=== PATIENT | female | born 1960 | race Caucasian/White ===

== ENCOUNTER → 2017-02-14 | Outpatient (CLI) | payer BC ==
[~2017-02-14] MED LIST: SIMV10TA84 PO
[2017-02-14 08:57] LABS: Basophils # (auto) 0 uL; Basophils % (auto) 0.7 % (0.0-2.0); CONDITION Y; Eosinophils # (auto) 0.1 uL; Eosinophils % (auto) 0.8 % (0.0-7.0); Hematocrit 51.7 % (36.0-46.0); Hemoglobin 17.3 g/dL (12.2-16.2); Lymphocytes % (auto) 27.7 % (10.0-50.0); Mean Corpuscular Hemoglobin 32.8 pg (28.0-32.0); Mean Corpuscular Hgb Conc. 33.5 g/dL (32.0-36.0); Mean Corpuscular Volume 97.9 fL (80.0-100.0); Mean Platelet Volume 8.7 fL (7.4-10.4); Monocytes # (auto) 0.7 uL; Monocytes % (auto) 10.2 % (0.0-12.0); Neutrophils # (auto) 4.5 uL; Neutrophils % (auto) 60.6 % (37.0-80.0); Platelet Count (auto) 226 10^3/uL (140-450); Red Cell Distribution Width 14.9 % (11.6-16.0); White Blood Cell 7.4 10^3/uL (4.4-10.8)
[2017-02-14 09:12] LABS: Calcium 9.1 mg/dL (8.5-10.1); INR 1.2 (0.9-1.15); Partial Thromboplastin Time 27.1 sec (22.64-33.71); Potassium 4.3 mmol/L (3.5-5.1)
[2017-02-14 09:38] LABS: Prothrombin Time 13.1 sec (9.37-12.3)
== END | disposition home or self-care (01) ==
LOC: LAB 08:34
PROVIDERS: ATTEND Internal Medicine
DX: I42.0 Dilated cardiomyopathy (principal)
CPT/HCPCS: 36415; 80048; 83036; 85025; 85610; 85730

== ENCOUNTER → 2017-02-25 | Outpatient (CLI) | payer BC ==
[2017-02-25 11:30] VITALS: BP 119/87
[2017-02-25 13:20] VITALS: BP 133/101
[2017-02-25 15:01] LABS: Basophils # (auto) 0 uL; Basophils % (auto) 0.7 % (0.0-2.0); CONDITION Y; Eosinophils # (auto) 0.1 uL; Eosinophils % (auto) 1.4 % (0.0-7.0); Hematocrit 55.8 % (36.0-46.0); Hemoglobin 18.1 g/dL (12.2-16.2); Lymphocytes # (auto) 1.8 uL; Mean Corpuscular Hemoglobin 32.5 pg (28.0-32.0); Mean Corpuscular Hgb Conc. 32.5 g/dL (32.0-36.0); Mean Corpuscular Volume 99.9 fL (80.0-100.0); Mean Platelet Volume 9.6 fL (7.4-10.4); Monocytes # (auto) 0.8 uL; Monocytes % (auto) 12.4 % (0.0-12.0); Neutrophils # (auto) 3.8 uL; Neutrophils % (auto) 58.5 % (37.0-80.0); Platelet Count (auto) 243 10^3/uL (140-450); Red Cell Distribution Width 15.4 % (11.6-16.0); White Blood Cell 6.6 10^3/uL (4.4-10.8)
[2017-02-25 15:17] LABS: Albumin 3.6 g/dL (3.4-5.0); BUN/Creatinine Ratio 16.4; Magnesium 2.4 mg/dL (1.6-2.6); Potassium 4.6 mmol/L (3.5-5.1)
[2017-02-25 15:21] LABS: Bilirubin, Total 0.8 mg/dL (0.2-1.0); Total Protein 7.1 g/dL (6.4-8.2)
== END | disposition home or self-care (01) ==
LOC: CHF HDHVI 11:23
PROVIDERS: ATTEND Internal Medicine Cardiovascular Disease
DX: I10 Essential (primary) hypertension (principal); D64.9 Anemia, unspecified; E55.9 Vitamin D deficiency, unspecified
CPT/HCPCS: 36415; 80053; 82306; 83735; 85025

== ENCOUNTER → 2017-03-15 | Outpatient (CLI) | payer BC ==
[~2017-03-15] MED LIST changes: +CRAN400T6 PO; +ENA2.5T PO; +FURO40TA PO; +METO25TA3 PO; +OMEG306C OR; +POTA10TA51 PO; +SELE200T23 OR; +TADA20TA33 PO
[2017-03-15 10:30] VITALS: BP 122/76
[2017-03-15 11:00] VITALS: BP 124/78
== END | disposition home or self-care (01) ==
LOC: CHF HDHVI 14:28
PROVIDERS: ATTEND Internal Medicine Cardiovascular Disease
DX: I50.9 Heart failure, unspecified (principal)
CPT/HCPCS: G0463

== ENCOUNTER → 2017-04-23 | Outpatient (CLI) | payer BC ==
[~2017-04-23] MED LIST changes: -CRAN400T6 PO; +CYANOCOBALAMIN (B-12) 1000 MCG/1 ML VIAL IM ONE; +CYANOCOBALAMIN (B-12) 1000 MCG/1 ML VIAL ONE; -ENA2.5T PO; -FURO40TA PO; +KETOROLAC TROMETH 60MG/2ML VIAL IM ONE; -METO25TA3 PO; -OMEG306C OR; -POTA10TA51 PO; -SELE200T23 OR; -TADA20TA33 PO
[2017-04-23 11:00] VITALS: BP 97/65
[2017-04-23 12:49] VITALS: BP 95/64
[2017-04-23 16:07] LABS: Basophils # (auto) 0.1 uL; Basophils % (auto) 1.1 % (0.0-2.0); Eosinophils # (auto) 0.1 uL; Eosinophils % (auto) 1.7 % (0.0-7.0); Hematocrit 52.7 % (36.0-46.0); Hemoglobin 17.6 g/dL (12.2-16.2); Lymphocytes # (auto) 2.1 uL; Lymphocytes % (auto) 25.1 % (10.0-50.0); Mean Corpuscular Hemoglobin 32.9 pg (28.0-32.0); Mean Corpuscular Hgb Conc. 33.3 g/dL (32.0-36.0); Mean Corpuscular Volume 98.6 fL (80.0-100.0); Mean Platelet Volume 9.3 fL (6.9-10.8); Monocytes # (auto) 0.9 uL; Monocytes % (auto) 11.1 % (0.0-12.0); Nucleated Red Blood Cells % 0.7 %; Platelet Count (auto) 263 10^3/uL (140-450); Red Cell Distribution Width 13.5 % (11.8-14.3); White Blood Cell 8.2 10^3/uL (4.4-10.8)
[2017-04-23 16:22] LABS: Albumin 3.3 g/dL (3.4-5.0); BUN/Creatinine Ratio 21.8; Bilirubin, Total 0.6 mg/dL (0.2-1.0); Calcium 9.3 mg/dL (8.5-10.1); Potassium 3.8 mmol/L (3.5-5.1); Total Protein 7.2 g/dL (6.4-8.2)
== END | disposition home or self-care (01) ==
LOC: CHF HDHVI 11:09
PROVIDERS: ATTEND Internal Medicine Cardiovascular Disease
DX: M25.512 Pain in left shoulder (principal); I10 Essential (primary) hypertension; D64.9 Anemia, unspecified
CPT/HCPCS: 36415; 73030; 80053; 85025; 93005; 93701; G0463; J1885; J3420

== ENCOUNTER → 2017-04-26 | Outpatient (CLI) | payer BC ==
[~2017-04-26] MED LIST changes: -CYANOCOBALAMIN (B-12) 1000 MCG/1 ML VIAL IM ONE; -CYANOCOBALAMIN (B-12) 1000 MCG/1 ML VIAL ONE
[2017-04-26] MEDS: KETOROLAC TROMETH 60MG/2ML VIAL IM ONE (10:55)
[2017-04-26 11:00] VITALS: BP 105/74
[2017-04-26 12:21] LABS: Basophils # (auto) 0.1 uL; Eosinophils # (auto) 0.2 uL; Eosinophils % (auto) 1.9 % (0.0-7.0); Hematocrit 53.6 % (36.0-46.0); Hemoglobin 18.3 g/dL (12.2-16.2); Lymphocytes # (auto) 2.2 uL; Lymphocytes % (auto) 28.2 % (10.0-50.0); Mean Corpuscular Hemoglobin 33.7 pg (28.0-32.0); Mean Corpuscular Hgb Conc. 34.1 g/dL (32.0-36.0); Mean Corpuscular Volume 98.8 fL (80.0-100.0); Monocytes # (auto) 0.9 uL; Monocytes % (auto) 11.4 % (0.0-12.0); Neutrophils # (auto) 4.5 uL; Neutrophils % (auto) 57.5 % (37.0-80.0); Nucleated Red Blood Cells % 0.5 %; Platelet Count (auto) 292 10^3/uL (140-450); White Blood Cell 7.8 10^3/uL (4.4-10.8)
[2017-04-26 12:39] LABS: Albumin 3.6 g/dL (3.4-5.0); Alkaline Phosphatase 203 U/L (45-117); Anion Gap 10 (5-15); Aspartate Aminotransferase 52 U/L (15-37); BUN/Creatinine Ratio 29.5; Bilirubin, Total 0.6 mg/dL (0.2-1.0); Blood Urea Nitrogen 26 mg/dL (7-18); Calcium 9.2 mg/dL (8.5-10.1); Carbon Dioxide 24 mmol/L (21-32); Chloride 103 mmol/L (98-107); GFR African American 85 mL/min; GFR Non-African American 70 mL/min; Glucose 89 mg/dL (74-106); Magnesium 2.4 mg/dL (1.6-2.6); Potassium 4.1 mmol/L (3.5-5.1); Sodium 137 mmol/L (136-145); Total Protein 7.5 g/dL (6.4-8.2)
[2017-04-26 14:00] VITALS: BP 103/60
== END | disposition home or self-care (01) ==
LOC: CHF HDHVI 10:47
PROVIDERS: ATTEND Internal Medicine Cardiovascular Disease
DX: I10 Essential (primary) hypertension (principal); D64.9 Anemia, unspecified; E83.42 Hypomagnesemia; R78.9 Finding of unspecified substance, not normally found in blood
CPT/HCPCS: 36415; 80053; 83735; 84484; 85025; 93005; 96372; G0463; J1885

== ENCOUNTER 2017-06-15 21:04 | Emergency (ER) | payer BC ==
[~2017-06-15] VITALS: Ht 162.6 cm; Wt 65.8 kg
[~2017-06-15 21:04] MED LIST changes: +CRAN400T6 PO; +ENA2.5T PO; +FURO40TA PO; -KETOROLAC TROMETH 60MG/2ML VIAL IM ONE; +METO25TA3 PO; +OMEG306C OR; +POTA10TA51 PO; +SELE200T23 OR; +TADA20TA33 PO
[2017-06-15 21:33] VITALS: BP 153/115
[2017-06-15] MEDS ORDERED: cloNIDine HCL 0.1 MG TAB ONE (21:39)
[2017-06-15] MEDS ORDERED: cloNIDine HCL 0.1 MG TAB PO ONE (22:00)
== END 2017-06-15 22:56 | disposition left against medical advice (07) ==
LOC: ER 21:07
DX: R07.89 Other chest pain (principal); R06.02 Shortness of breath; Z53.21 Procedure and treatment not carried out due to patient leaving prior to being seen by health care provider
CPT/HCPCS: 71010; 93005